=== PATIENT | female | born 1985 | race Asian ===

== ENCOUNTER 2023-05-23 19:10 | Observation (INO) | payer OTHER ==
[2023-05-23] MEDS ORDERED: ONDANSETRON 4 MG/2 ML VIAL IVPUSH ONE (19:38)
[2023-05-23] MEDS ORDERED: ONDANSETRON 4 MG/2 ML VIAL ONE (19:43)
[2023-05-23 20:05] LABS: BASO % 0.3 % (0-2.0); EOS % 0.3 % (0-4.5); HEMATOCRIT 30.1 % (32.4-45.2); LYMPH % 16.8 % (8-40); MCH 28.7 pg (25.7-33.7); MCHC 33.3 g/dl (32.0-36.0); MEAN CELL VOLUME 86.4 fl (80-96); MEAN PLT VOLUME 7.6 fl (7.5-11.1); MONO % 6.4 % (3.8-10.2); NEUT % 76.2 % (42.8-82.8); PLATELET COUNT 283 10^3/uL (134-434); RBC 3.48 M/mm3 (3.60-5.2); WHITE BLOOD COUNT 9.5 K/mm3 (4.0-10.0)
[2023-05-23 20:11] LABS: INR 1.31 (0.83-1.09); PROTHROMBIN TIME (PATIENT) 15.2 SEC (9.7-13.0)
[2023-05-23 20:14] LABS: ACTIVATED PTT 27.1 SECONDS (25.2-36.5)
[2023-05-23 20:18] LABS: POTASSIUM 4.5 mmol/L (3.5-5.1)
[2023-05-23 20:22] LABS: BLOOD UREA NITROGEN 20.5 mg/dL (7-18); MAGNESIUM 1.6 mg/dL (1.8-2.4)
[2023-05-23 20:25] LABS: CREATININE 0.8 mg/dL (0.55-1.3)
[2023-05-23 20:26] LABS: BILIRUBIN,TOTAL 0.4 mg/dL (0.2-1)
[2023-05-23 20:27] LABS: TOT PROT 5.8 g/dl (6.4-8.2)
[2023-05-23 20:33] LABS: CALCIUM 7.7 mg/dL (8.5-10.1)
[2023-05-23] MEDS ORDERED: SODIUM CHLORIDE 0.9% 500 ML INFUS.BAG IV ONE (20:41)
[2023-05-23] MEDS ORDERED: MAGNESIUM SULF 50% (8.12 MEQ/2 ML-1 GM VIAL) IVPB ONE (20:45)
[2023-05-23] MEDS ORDERED: MAGNESIUM SULFATE IN WATER 2 GM/50 ML IVPB IVPB ONE (21:14)
[2023-05-24] MEDS ORDERED: ACETAMINOPHEN 325 MG TABLET (FP) PO PRN (05:09)
[2023-05-24 06:24] VITALS: BMI 33.8
[2023-05-24 07:30] LABS: BASO % 0.5 % (0-2.0); EOS % 0.5 % (0-4.5); HEMATOCRIT 27.4 % (32.4-45.2); HEMOGLOBIN 9.2 GM/dL (10.7-15.3); LYMPH % 21.3 % (8-40); MCH 28.9 pg (25.7-33.7); MCHC 33.7 g/dl (32.0-36.0); MEAN CELL VOLUME 85.8 fl (80-96); MEAN PLT VOLUME 7.8 fl (7.5-11.1); MONO % 5.8 % (3.8-10.2); NEUT % 71.9 % (42.8-82.8); PLATELET COUNT 386 10^3/uL (134-434); RBC 3.19 M/mm3 (3.60-5.2); WHITE BLOOD COUNT 11.4 K/mm3 (4.0-10.0)
[2023-05-24 07:38] LABS: POTASSIUM 4.4 mmol/L (3.5-5.1)
[2023-05-24 07:42] LABS: ALBUMIN 3.3 g/dl (3.4-5.0); BLOOD UREA NITROGEN 14.5 mg/dL (7-18); CALCIUM 8.2 mg/dL (8.5-10.1)
[2023-05-24 07:45] LABS: CREATININE 0.7 mg/dL (0.55-1.3)
[2023-05-24 07:47] LABS: BILIRUBIN,TOTAL 0.4 mg/dL (0.2-1); TOT PROT 6.4 g/dl (6.4-8.2)
[2023-05-24] MEDS ORDERED: IRON SUCROSE INJECTION 200 MG in SODIUM CHLORIDE 90 ML IVPB ONE (11:00)
[2023-05-24 11:42] LABS: MAGNESIUM 2.4 mg/dL (1.8-2.4); PHOSPHOROUS 3.1 mg/dL (2.5-4.9)
[2023-05-24 12:40] LABS: HEMATOCRIT 26.7 % (32.4-45.2); HEMOGLOBIN 9.1 GM/dL (10.7-15.3); MCH 28.7 pg (25.7-33.7); MCHC 34.1 g/dl (32.0-36.0); MEAN CELL VOLUME 84.2 fl (80-96); MEAN PLT VOLUME 7.9 fl (7.5-11.1); PLATELET COUNT 391 10^3/uL (134-434); RBC 3.17 M/mm3 (3.60-5.2); RDW 14.3 % (11.6-15.6); WHITE BLOOD COUNT 12.5 K/mm3 (4.0-10.0)
[2023-05-24] MEDS ORDERED: SENNOSIDES 8.6MG TABLET (FP) PO PRN (20:12)
[2023-05-24] MEDS ORDERED: ROSUVASTATIN CA 5 MG TABLET PO SCH (22:00)
[2023-05-25 09:01] LABS: HEMATOCRIT 21.9 % (32.4-45.2); HEMOGLOBIN 7.6 GM/dL (10.7-15.3); MCHC 34.9 g/dl (32.0-36.0); MEAN PLT VOLUME 7.9 fl (7.5-11.1); PLATELET COUNT 317 10^3/uL (134-434); RBC 2.54 M/mm3 (3.60-5.2); RDW 14.5 % (11.6-15.6); WHITE BLOOD COUNT 7.8 K/mm3 (4.0-10.0)
[2023-05-25] MEDS: POLYETHYLENE GLYCOL (HEALTHYLAX) 3350 17 GM PACKET PO SCH (10:39)
[2023-05-26 06:28] VITALS: RESP 20
[2023-05-26 07:58] LABS: HEMATOCRIT 27.4 % (32.4-45.2); HEMOGLOBIN 9.7 GM/dL (10.7-15.3); MCH 29.9 pg (25.7-33.7); MCHC 35.2 g/dl (32.0-36.0); MEAN CELL VOLUME 84.8 fl (80-96); MEAN PLT VOLUME 7.8 fl (7.5-11.1); PLATELET COUNT 330 10^3/uL (134-434); RBC 3.23 M/mm3 (3.60-5.2); RDW 13.8 % (11.6-15.6); WHITE BLOOD COUNT 11.2 K/mm3 (4.0-10.0)
[2023-05-26] MEDS: POLYETHYLENE GLYCOL (HEALTHYLAX) 3350 17 GM PACKET PO SCH (11:01)
[2023-05-26 13:24] VITALS: BP 109/64; PULSE 95; TEMP 99.1
== END 2023-05-26 13:56 | disposition home or self-care (01) ==
LOC: JER 19:10 → JERBED 20:41 → J4W 05-24 01:13
PROVIDERS: ADMIT Internal Medicine; ATTEND Internal Medicine
PROC: 3E0337Z Introduction of Electrolytic and Water Balance Substance into Peripheral Vein, Percutaneous Approach (ICD-10-PCS; principal; 2023-05-23)
PROC: 3E033GC Introduction of Other Therapeutic Substance into Peripheral Vein, Percutaneous Approach (ICD-10-PCS; 2023-05-23)
PROC: 30233N1 Transfusion of Nonautologous Red Blood Cells into Peripheral Vein, Percutaneous Approach (ICD-10-PCS; 2023-05-23)
DX: I95.1 Orthostatic hypotension (principal); N93.9 Abnormal uterine and vaginal bleeding, unspecified; R00.0 Tachycardia, unspecified; E28.2 Polycystic ovarian syndrome; E78.00 Pure hypercholesterolemia, unspecified; G43.909 Migraine, unspecified, not intractable, without status migrainosus; R73.03 Prediabetes
CPT/HCPCS: 36415; 36430; 80053; 83735; 84100; 85025; 85027; 85610; 85730; 86850; 86900; 86901; 86922; 93005; 93010; 96365; 96375; 99285-25; G0378; J1756; P9058

== ENCOUNTER 2023-06-01 04:54 | Day surgery (SDC) | payer OTHER ==
[2023-05-31 12:20] VITALS: BMI 33.5
[2023-06-01] MEDS ORDERED: VASOPRESSIN 20 UNITS/ML VIAL IV ONE ×2 (14:24→14:25)
[2023-06-01] MEDS ORDERED: MIDAZOLAM HCL 2 MG/2 ML SINGLE DOSE VIAL ONE (14:57)
[2023-06-01] MEDS ORDERED: PROPOFOL 20 ML ONE (14:57)
[2023-06-01] MEDS ORDERED: ONDANSETRON 4 MG/2 ML VIAL ONE (15:30)
[2023-06-01] MEDS ORDERED: ceFAZolin SODIUM 1 GM VIAL IVPB ONE (15:30)
[2023-06-01] MEDS ORDERED: ceFAZolin SODIUM 1 GM VIAL ONE (15:30)
[2023-06-01] MEDS ORDERED: DEXAMETHASONE SOD PHOSPHATE 4 MG/1 ML VIAL ONE (15:30)
[2023-06-01] MEDS ORDERED: IBUPROFEN 800 MG/8 ML IJ IVPB PRN (15:48)
[2023-06-01] MEDS ORDERED: ONDANSETRON 4 MG/2 ML VIAL IVPUSH PRN ×2 (15:48→15:55)
[2023-06-01] MEDS ORDERED: oxyCODONE HCL 5 MG TABLET PO PRN (15:48)
[2023-06-01] MEDS ORDERED: IBUPROFEN 600 MG TABLET (FP) PO PRN (15:48)
[2023-06-01] MEDS ORDERED: ACETAMINOPHEN 1000 MG/100 ML BAG IVPB ONE (15:55)
[2023-06-01] MEDS ORDERED: KETOROLAC TROMETHAMINE 30 MG/1 ML VIAL IVPUSH ONE (15:55)
[2023-06-01] MEDS ORDERED: ELECTROLYTE-148 SOLN 1,000 ML IV SCH (16:00)
[2023-06-01] MEDS ORDERED: LACTATED RINGERS SOLUTION 1,000 ML IV SCH (16:00)
[2023-06-01 18:19] VITALS: RESP 18
[2023-06-01 18:48] VITALS: BP 120/88; PULSE 92; TEMP 97.5
== END 2023-06-01 18:55 | disposition home or self-care (01) ==
LOC: JASU-SURG 04:54
PROVIDERS: ATTEND Obstetrics & Gynecology
PROC: 0UB97ZZ Excision of Uterus, Via Natural or Artificial Opening (ICD-10-PCS; principal; 2023-06-01 15:00)
DX: C54.1 Malignant neoplasm of endometrium (principal); N92.1 Excessive and frequent menstruation with irregular cycle; D64.9 Anemia, unspecified
CPT/HCPCS: 88305-TC; 88341-TC; 88342-TC; 94760